=== PATIENT | female | born 1950 | race Caucasian/White ===

== ENCOUNTER 2016-04-26 07:40 | Emergency (ER) | payer OTHER ==
[~2016-04-26] VITALS: Ht 170.2 cm; Wt 74.3 kg
[~2016-04-26 07:40] MED LIST: AQUAPHOR OINTM105 GM TP; ASPIR 8181 M1 PO; ASPIR-LOW81 MG PO; ASPIRIN EC325 MG PO; ASPIRIN81 M1 PO; ATARAX,VISTARIL25 MG PO; ATARAX,VISTARIL50 MG PO; ATORVASTATIN CA40 MG PO; AUGMENTIN875 MG PO; BENTYL10 MG PO; CIPRO500 MG PO; CLONIDINE HCL0.1 MG; CLONIDINE HCL0.1 MG PO; CLOPIDOGREL75 MG PO; DIMENHYDRINATE50 MG PO; ECOTRIN325 MG PO; Ecotrin PO; FLAGYL500 MG PO; Habitrol,Nicoderm CQ TD; Hydrodiuril,Oretic,E PO; KENALOG,ARISTOC15 GM TP; LIDEX 0.05% CRE60 GM TP; LIDEX 0.05% OIN15 GM TP; LIPITOR40 MG PO; LISINOPRIL20 MG PO; LISINOPRIL5 MG PO; LOPRESSOR25 MG PO; Levaquin PO; MEDROL DOSEPAK4 MG PO; MICROZIDE12.5 M1 PO; MOTRIN800 MG PO; Medrol Dosepak PO; NAPROSYN500 MG PO; NICOTINE PATCH1 EAC1 TD; NOHOMEMEDS; NORVASC5 MG PO; Norvasc PO; PEN-VEE K,VEET500 MG PO; PRAVASTATIN SOD40 MG PO; PREDNISONE10 M1 PO; PREDNISONE10 MG PO; PREDNISONE20 MG PO; PREDNISONE50 MG PO; Protonix PO; SUBOXONE 8 MG-1 EAC2; SUBOXONE 8 MG-1 EAC2 SL; TRAMADOL HCL50 MG PO; TYLENOL EXTRA500 MG PO; TYLENOL REGULA325 MG PO; ULTRAM50 MG PO; VALTREX1000 MG PO; VENTOLIN HFA18 GM IH; Vicodin,Norco 5/325 PO; Xanax PO; ZITHROMAX Z-PA250 MG PO; ZOFRAN ODT4 MG PO; ZOFRAN4 MG PO; Zestril,Prinivil PO; predniSONE PO
[2016-04-26] MEDS ORDERED: BACTRIM,SEPT1 TABLET PO (08:00)
[2016-04-26] MEDS ORDERED: PREDNISONE10 M1 PO (08:00)
[2016-04-26 09:25] VITALS: BP 159/86
== END 2016-04-26 09:28 | disposition home or self-care (01) ==
LOC: EME 07:40
DX: L93.0 Discoid lupus erythematosus (principal); I10 Essential (primary) hypertension
CPT/HCPCS: 99281; 99283

== ENCOUNTER 2016-06-09 17:41 | Emergency (ER) | payer OTHER ==
[~2016-06-09] VITALS: Ht 170.2 cm; Wt 72.1 kg
[~2016-06-09 17:41] MED LIST changes: +BACTRIM,SEPT1 TABLET PO
[2016-06-09] MEDS ORDERED: PREDNISONE10 M1 PO (19:38)
[2016-06-09] MEDS ORDERED: ATARAX,VISTARIL50 MG PO (19:40)
[2016-06-09] MEDS ORDERED: ATARAX,VISTARIL25 MG PO (19:46)
[2016-06-09 20:01] VITALS: BP 150/65
== END 2016-06-09 20:03 | disposition home or self-care (01) ==
LOC: EME 17:41
DX: L40.4 Guttate psoriasis (principal); J44.9 Chronic obstructive pulmonary disease, unspecified; I10 Essential (primary) hypertension; I25.2 Old myocardial infarction; M32.9 Systemic lupus erythematosus, unspecified; M06.9 Rheumatoid arthritis, unspecified; G89.29 Other chronic pain; F17.200 Nicotine dependence, unspecified, uncomplicated
CPT/HCPCS: 99281; 99284; J2930; Q0177

== ENCOUNTER 2016-07-02 18:39 | Emergency (ER) | payer OTHER ==
[~2016-07-02] VITALS: Ht 170.2 cm; Wt 73.3 kg
[2016-07-02 18:59] VITALS: BP 141/69
[2016-07-02] MEDS ORDERED: MOTRIN800 MG PO (21:42)
== END 2016-07-02 21:45 | disposition home or self-care (01) ==
LOC: EME 18:39
DX: S80.02XA Contusion of left knee, initial encounter (principal); R60.1 Generalized edema; W18.30XA Fall on same level, unspecified, initial encounter; F17.200 Nicotine dependence, unspecified, uncomplicated; Z88.6 Allergy status to analgesic agent
CPT/HCPCS: 73564; 93971; 99281; 99284

== ENCOUNTER 2016-10-02 11:37 | Emergency (ER) | payer OTHER ==
[~2016-10-02] VITALS: Ht 170.2 cm; Wt 73.8 kg
[2016-10-02] MEDS ORDERED: SUBOXONE 8 MG-1 EAC2 SL (12:02)
[2016-10-02 12:21] LABS: EOSINOPHIL (%) 8.5 % (0-5); EOSINOPHIL COUNT 0.5 K/uL (0-0.3); HEMATOCRIT 35.4 % (36.0-46.0); IMMATURE GRANULOCYTE (%) 0.2 % (0.0-0.7); INSTRUMENT ABS NEUTROPHIL CT 2.2 K/uL; LYMPHOCYTE COUNT 2.7 K/uL (1.0-2.8); MCH 31.3 PG (29.0-34.0); MCHC 31.9 G/DL (30.0-36.0); MCV 98.1 FL (83-99); MEAN PLAT.VOLUME 10.7 uM^3 (9.5-12.4); MONOCYTE (%) 7.1 % (3-12); MONOCYTE COUNT 0.4 K/uL (0-0.8); NEUTROPHIL (%) 37.4 % (45-76); NEUTROPHIL COUNT 2.2 K/uL (1.8-6.4); PLATELET COUNT 260 K/uL (156-360); RBC DIS.WIDTH-CV 13.1 % (11.8-14.6); RBC DIS.WIDTH-SD 47.5 % (39-53); RED BLOOD COUNT 3.61 M/uL (3.80-5.20); WHITE BLOOD COUNT 5.9 K/uL (4.1-10.2)
[2016-10-02 12:37] LABS: CHLORIDE 111 mEq/L (99-109); POTASSIUM 4.4 mEq/L (3.7-5.4); SODIUM 141 mEq/L (136-147)
[2016-10-02 12:39] LABS: GLUCOSE 91 mg/dL (70-99)
[2016-10-02 12:39] LABS: ADD MIUA? NO; BILIRUBIN NEGATIVE; BLOOD NEGATIVE; COLOR YELLOW ((YELLOW)); GLUCOSE (STRIP) NEGATIVE; KETONES NEGATIVE; LEUKOCYTES NEGATIVE; NITRITE NEGATIVE; PROTEIN (STRIP) 30; SPECIFIC GRAVITY 1.033 (1.000-1.030); UCUL ADDED? NO; UROBILINOGEN 0.2 MG/DL (0.2-1.0)
[2016-10-02 12:40] LABS: ANION GAP 6 MEQ/L (2-14)
[2016-10-02 12:42] LABS: GFR ESTIMATE (CALCULATED) 53 mL/min/
[2016-10-02 12:43] LABS: UREA NITROGEN (BUN) 23 mg/dL (9-23)
[2016-10-02 13:13] LABS: ERTH.SED.RATE 50 MM/HR (0-30)
[2016-10-02 13:16] LABS: C-REACTIVE PROTEIN 4.6 MG/L (0-10)
[2016-10-02] MEDS ORDERED: PREDNISONE10 M1 PO (13:53)
[2016-10-02] MEDS ORDERED: MOTRIN600 MG PO (13:53)
[2016-10-02] MEDS ORDERED: KEFLEX500 MG PO (13:53)
[2016-10-02 14:22] VITALS: BP 128/63
== END 2016-10-02 14:26 | disposition home or self-care (01) ==
LOC: EME 11:37
PROVIDERS: Emergency Medicine
DX: M32.9 Systemic lupus erythematosus, unspecified (principal); I10 Essential (primary) hypertension; M06.9 Rheumatoid arthritis, unspecified; I25.2 Old myocardial infarction; F17.200 Nicotine dependence, unspecified, uncomplicated; Z88.6 Allergy status to analgesic agent
CPT/HCPCS: 80048; 81003; 85025; 85651; 86140; 99281; 99284; J7512

== ENCOUNTER 2016-11-14 07:27 | Emergency (ER) | payer OTHER ==
[~2016-11-14] VITALS: Ht 170.2 cm; Wt 74.3 kg
[~2016-11-14 07:27] MED LIST changes: +KEFLEX500 MG PO; +MOTRIN600 MG PO
[2016-11-14 08:27] LABS: INFLUENZA A VIRAL ANTIGEN NEGATIVE; INFLUENZA B VIRAL ANTIGEN NEGATIVE
[2016-11-14 09:01] LABS: HEMATOCRIT 36.8 % (36.0-46.0); MCH 31.5 PG (29.0-34.0); MCHC 32.3 G/DL (30.0-36.0); MCV 97.4 FL (83-99); MEAN PLAT.VOLUME 11.3 uM^3 (9.5-12.4); PLATELET COUNT 161 K/uL (156-360); RBC DIS.WIDTH-CV 13.2 % (11.8-14.6); RBC DIS.WIDTH-SD 47.9 % (39-53); RED BLOOD COUNT 3.78 M/uL (3.80-5.20); WHITE BLOOD COUNT 10.4 K/uL (4.1-10.2)
[2016-11-14 09:20] LABS: CHLORIDE 113 mEq/L (99-109)
[2016-11-14 09:21] LABS: POTASSIUM 3.9 mEq/L (3.7-5.4); SODIUM 142 mEq/L (136-147)
[2016-11-14 09:23] LABS: GLUCOSE 109 mg/dL (70-99)
[2016-11-14 09:24] LABS: ANION GAP 8 MEQ/L (2-14)
[2016-11-14 09:25] LABS: TOTAL BILIRUBIN 0.3 mg/dL (0.0-1.0)
[2016-11-14 09:26] LABS: ALKALINE PHOSPHATASE 111 IU/L (3-129)
[2016-11-14 09:27] LABS: GFR ESTIMATE (CALCULATED) > 59 mL/min/
[2016-11-14 09:28] LABS: UREA NITROGEN (BUN) 19 mg/dL (9-23)
[2016-11-14 09:33] LABS: TROP-I INTERPRETATION NEGATIVE; TROPONIN-I < 0.01 ng/mL (0.0-0.30)
[2016-11-14] MEDS ORDERED: PROVENTIL HFA6.7 GM IH (09:46)
[2016-11-14] MEDS ORDERED: MEDROL DOSEPAK4 MG PO (09:46)
[2016-11-14 10:00] VITALS: BP 115/57
== END 2016-11-14 10:01 | disposition home or self-care (01) ==
LOC: EME 07:27
PROVIDERS: Nurse Practitioner Family
DX: J06.9 Acute upper respiratory infection, unspecified (principal); J44.9 Chronic obstructive pulmonary disease, unspecified; M06.9 Rheumatoid arthritis, unspecified; I10 Essential (primary) hypertension; M32.9 Systemic lupus erythematosus, unspecified; I25.2 Old myocardial infarction; F17.200 Nicotine dependence, unspecified, uncomplicated
CPT/HCPCS: 71020; 80053; 84484; 85027; 87502; 93005; 94640; 99281; 99284

== ENCOUNTER 2017-04-30 12:13 | Observation (INO) | payer OTHER ==
[~2017-04-30] VITALS: Ht 170.2 cm; Wt 72.6 kg
[~2017-04-30 12:13] MED LIST changes: +PROVENTIL HFA6.7 GM IH
[2017-04-30 13:35] LABS: HEMATOCRIT 37.4 % (36.0-46.0); HEMOGLOBIN 12.5 G/DL (11.9-15.5); MCH 32.1 PG (29.0-34.0); MCHC 33.4 G/DL (30.0-36.0); MCV 95.9 FL (83-99); PLATELET COUNT 162 K/uL (156-360); RBC DIS.WIDTH-CV 13.4 % (11.8-14.6); RBC DIS.WIDTH-SD 47.5 % (39-53); WHITE BLOOD COUNT 8.9 K/uL (4.1-10.2)
[2017-04-30 13:43] LABS: CHLORIDE 111 mEq/L (99-109); POTASSIUM 3.8 mEq/L (3.7-5.4)
[2017-04-30 13:44] LABS: SODIUM 143 mEq/L (136-147)
[2017-04-30 13:45] LABS: GLUCOSE 84 mg/dL (70-99)
[2017-04-30 13:49] LABS: CREATININE 0.8 mg/dL (0.6-1.3); GFR ESTIMATE (CALCULATED) > 59 mL/min/
[2017-04-30 13:50] LABS: UREA NITROGEN (BUN) 22 mg/dL (9-23)
[2017-04-30 13:55] LABS: TROP-I INTERPRETATION NEGATIVE; TROPONIN-I < 0.01 ng/mL (0.0-0.30)
[2017-04-30] MEDS ORDERED: SUBOXONE 8 MG-1 EAC2 SL (13:58)
[2017-04-30] MEDS ORDERED: LO-DOSE ASPIRIN81 M1 PO (16:03)
[2017-04-30] MEDS ORDERED: TYLENOL EXTRA500 MG PO (16:04)
[2017-04-30 16:51] VITALS: BP 190/74
[2017-04-30 17:01] LABS: HDL CHOLESTEROL 39 MG/DL (Desirable>=50); LDL CHOLESTEROL 82 mg/dL (Desirable<100); NON-HDL CHOLESTEROL 131 mg/dL (Desirable<160); TOTAL CHOLESTEROL 170 mg/dL (Desirable<200); TRIGLYCERIDES 244 MG/DL (Normal: <150)
[2017-04-30 18:26] LABS: TROP-I INTERPRETATION NEGATIVE; TROPONIN-I < 0.01 ng/mL (0.0-0.30)
[2017-04-30 19:00] VITALS: BP 140/68
[2017-05-01 00:30] VITALS: BP 118/58
[2017-05-01 04:04] VITALS: BP 124/60
[2017-05-01 05:38] LABS: HEMATOCRIT 37.7 % (36.0-46.0); HEMOGLOBIN 12.2 G/DL (11.9-15.5); MCH 30.9 PG (29.0-34.0); MCHC 32.4 G/DL (30.0-36.0); MCV 95.4 FL (83-99); PLATELET COUNT 166 K/uL (156-360); RBC DIS.WIDTH-CV 13.2 % (11.8-14.6); RBC DIS.WIDTH-SD 46.6 % (39-53); RED BLOOD COUNT 3.95 M/uL (3.80-5.20); WHITE BLOOD COUNT 7.5 K/uL (4.1-10.2)
[2017-05-01 05:55] LABS: TROP-I INTERPRETATION NEGATIVE; TROPONIN-I < 0.01 ng/mL (0.0-0.30)
[2017-05-01 06:01] LABS: CHLORIDE 112 MEQ/L (99-109); CREATININE 0.8 MG/DL (0.6-1.3); GFR ESTIMATE (CALCULATED) > 59 mL/min/; POTASSIUM 3.6 MEQ/L (3.7-5.4); SODIUM 144 MEQ/L (136-147); UREA NITROGEN (BUN) 19 mg/dL (9-23)
[2017-05-01 06:09] LABS: GLUCOSE 119 mg/dL (70-99)
[2017-05-01 07:42] VITALS: BP 110/53
[2017-05-01 11:25] VITALS: BP 127/58
[2017-05-01] MEDS ORDERED: ATORVASTATIN CA40 MG PO (12:31)
[2017-05-01] MEDS ORDERED: AMLODIPINE BESYL5 MG PO (12:31)
[2017-05-01] MEDS ORDERED: LOPRESSOR25 MG PO (12:31)
[2017-05-01] MEDS ORDERED: NITROSTAT0.4 MG SL (12:31)
[2017-05-01] MEDS ORDERED: ASPIR-LOW81 MG PO (12:31)
[2017-05-01] MEDS ORDERED: NICOTINE PATCH1 EAC2 TD (12:31)
[2017-05-02 10:03] LABS: HEMOGLOBIN A1c (GLYCOHEMOGLOB) 5.7 % (Below 5.7)
== END 2017-05-01 13:25 | disposition home or self-care (01) ==
LOC: EME 12:13 → EDOF 14:22 → ENRESERV 14:31 → 5WEST 16:43
PROVIDERS: Internal Medicine
DX: R07.9 Chest pain, unspecified (principal); I16.0 Hypertensive urgency; I10 Essential (primary) hypertension; E78.2 Mixed hyperlipidemia; F17.210 Nicotine dependence, cigarettes, uncomplicated; F11.20 Opioid dependence, uncomplicated; I25.10 Atherosclerotic heart disease of native coronary artery without angina pectoris; M06.9 Rheumatoid arthritis, unspecified; L93.0 Discoid lupus erythematosus; J44.9 Chronic obstructive pulmonary disease, unspecified; R20.0 Anesthesia of skin; M79.602 Pain in left arm; M54.2 Cervicalgia; I25.2 Old myocardial infarction; Z79.82 Long term (current) use of aspirin; Z90.49 Acquired absence of other specified parts of digestive tract; Z82.49 Family history of ischemic heart disease and other diseases of the circulatory system; Z83.3 Family history of diabetes mellitus; Z80.1 Family history of malignant neoplasm of trachea, bronchus and lung; Z88.5 Allergy status to narcotic agent
CPT/HCPCS: 71045; 80048; 80061; 83036; 84484; 85027; 93005; 99281; 99285; G0378; J0360; J1650; J7030

== ENCOUNTER 2017-07-02 10:25 | Emergency (ER) | payer OTHER ==
[~2017-07-02] VITALS: Ht 170.2 cm; Wt 67.9 kg
[~2017-07-02 10:25] MED LIST changes: +AMLODIPINE BESYL5 MG PO; +LO-DOSE ASPIRIN81 M1 PO; +NICOTINE PATCH1 EAC2 TD; +NITROSTAT0.4 MG SL
[2017-07-02 10:30] VITALS: BP 158/62
== END 2017-07-02 13:09 | disposition left against medical advice (07) ==
LOC: EME 10:25
DX: S40.829A Blister (nonthermal) of unspecified upper arm, initial encounter (principal); Z53.21 Procedure and treatment not carried out due to patient leaving prior to being seen by health care provider